=== PATIENT | female | born 1965 | race African-American/Black ===

== ENCOUNTER 2023-01-21 09:53 | Emergency (ER) | payer MEDICARE, OTHER, SELFPAY ==
[2023-01-21 10:10] VITALS: BP 148/93; PULSE 88; RESP 16; TEMP 36.6; O2SAT 100
--- NOTE | 2023-01-21 10:41 | ED.DENTAL ---
HPI - Dental/Oral General Chief complaint: Dental/Oral Stated complaint: left side tooth pain Time Seen by Provider: 01/21/23 10:41 Source: patient Mode of arrival: ambulatory History of Present Illness HPI Narrative: 57-year-old female presented for complaint of left upper dental pain worsening over the past 3 days. She has been using multiple [id number] remedies without relief. Endorses left cheek swelling. She has an appointment with dentist in a few weeks. Denies nausea, vomiting, diarrhea fevers or chills. MD Complaint: tooth pain Related Data Home Medications Medication Instructions Recorded Confirmed atorvastatin 01/21/23 losartan 25 mg tablet mg 01/21/23 metoprolol succinate 50 mg mg PO 01/21/23 tablet,extended release 24 hr Allergies Allergy/AdvReac Type Severity Reaction Status Date / Time No Known Allergies Allergy Verified 01/21/23 10:14 Review of Systems Review of Systems: CONSTITUTIONAL: Denies body aches, fever, chills ENT: Denies rhinorrhea, congestion, sore throat, or otalgia. Reports dental pain CARDIOVASCULAR: Denies chest pain, palpitations RESPIRATORY: Denies cough or dyspnea. SKIN: Denies rash, itching, or wounds. MUSCULOSKELETAL: Denies myalgia. NEUROLOGIC: Denies headache, numbness, tingling, or weakness. [facility] Past Medical History Medical History (Updated 01/21/23 @ 10:53 by Maddi Choudhary, RICHARD) No pertinent past medical history Comments At time of signature, I have reviewed and agree with nursing past medical, surgical, social and family history unless otherwise noted. Please see nursing chart for further information. There is no relevant family history pertinent to the presenting complaint Exam Narrative: GENERAL: Appears in pain; no acute distress. HEAD: Normocephalic, atraumatic. EYES: EOMI. No redness or drainage. Conjunctivae normal. ENT: Dental pain location of #15, mild gum swelling and tenderness; crown appears intact; poor dentition throughout; left buccal mucosa erythematous with mild swelling, no purulent drainage; Mucous membranes pink and moist. TMs normal bilaterally. Throat normal. Uvula midline. NECK: Normal AROM. No lymphadenopathy. no induration below mandible, no neck pain. CHEST: No respiratory distress. Clear to auscultation. HEART: Regular rate and rhythm. No murmur appreciated. SKIN: Warm, dry, no rash. Normal skin turgor. NEURO: No focal deficits. Course Course Emergency Course: Patient is aware of diagnosis, understands and agrees to treatment plan. Anticipatory guidance given. Patient agrees to follow-up as directed and is aware of reasons to seek care at the emergency department. Portions of this record may have been created with voice recognition software Level of Care: Express Care Visit Vital Signs Vital signs: Vital Signs Temperature 97.9 F 01/21/23 10:10 Pulse Rate 88 01/21/23 10:10 Respiratory Rate 16 01/21/23 10:10 Blood Pressure 148/93 H 01/21/23 10:10 Pulse Oximetry 100 01/21/23 10:10 Oxygen Delivery Room Air 01/21/23 10:10 Temperature 97.9 F 01/21/23 10:10 Pulse Rate 88 01/21/23 10:10 Respiratory Rate 16 01/21/23 10:10 Blood Pressure 148/93 H 01/21/23 10:10 Pulse Oximetry 100 01/21/23 10:10 Oxygen Delivery Room Air 01/21/23 10:10 MDM - Dental/Oral MDM Narrative Medical decision making narrative: Patients pain and complaint coupled with physical findings are consistent with dentalgia. There are no focal signs of space occupying lesions that are compromising to the airway; No uvular deviation or soft palate edema. Patient is non-toxic appearing. The floor of the mouth is soft with no signs of Esau's Angina; Patient is without trismus or drooling and able to swallow secretions. Patient is felt appropriate for discharge home with dental follow up. Differential Diagnosis Differential diagnosis: Likely gingival abscess, dental caries, tootha
== END 2023-01-21 10:55 | disposition home or self-care (01) ==
PROVIDERS: Emergency Provider Nurse Practitioner Family; PCP Family Medicine
DX: K08.89 Other specified disorders of teeth and supporting structures (principal); E78.00 Pure hypercholesterolemia, unspecified; I10 Essential (primary) hypertension
CPT/HCPCS: 99203; G0463